=== PATIENT | female | born 1980 ===

== ENCOUNTER 2024-06-15 12:00 | Inpatient (IN) | payer OTHER ==
[~2024-06-15] VITALS: Ht 157.5 cm; Wt 80.7 kg
[2024-06-15] MEDS ORDERED: COZAAR25 MG PO (13:00)
[2024-06-15] MEDS ORDERED: ZETIA10 MG PO (13:00)
[2024-06-15] MEDS ORDERED: TOPROL XL50 M1 PO (13:00)
[2024-06-20] MEDS ORDERED: METRONIDAZOLE/SODIUM CHLORIDE 500 MG/100 ML PIGGYBACK IV ONE ×2 (06:57→08:45)
[2024-06-20] MEDS ORDERED: POVIDONE-IODINE 118 ML BOTT TOP ONE ×2 (06:57→08:45)
[2024-06-20] MEDS ORDERED: SUGAMMADEX SODIUM 200 MG/2 ML VIAL IV ONE ×2 (08:45→08:51)
[2024-06-20] MEDS ORDERED: HEMOSTATIC MATRIX 1 KIT KIT TOP ONE ×2 (08:51→12:00)
[2024-06-20] MEDS ORDERED: RINGERS SOLUTION,LACTATED 1,000 ML IV SCH (09:30)
[2024-06-20] MEDS ORDERED: MEPERIDINE HCL/PF 50 MG/ML VIAL IV PRN (09:30)
[2024-06-20] MEDS ORDERED: ONDANSETRON HCL 2 MG/ML VIAL IV PRN (09:30)
[2024-06-20 13:37] LABS: HEMATOCRIT 33.8 % (36.0-45.00); HEMOGLOBIN 11.4 g/dL (12.0-15.00); MEAN CORPUSCULAR HEMOGLOBIN 28.5 pg (27.00-32.0); MEAN CORPUSCULAR HGB CONC 33.9 g/dl (32.0-36.0); PLATELET COUNT 243 K/uL (150-450); RED BLOOD COUNT 4.02 M/uL (4.00-6.00)
[2024-06-20] MEDS ORDERED: METRONIDAZOLE/SODIUM CHLORIDE 500 MG/100 ML PIGGYBACK IV SCH (17:00)
[2024-06-21] MEDS ORDERED: ACETAMINOPHEN 500 MG GEL..CAP PO PRN (07:15)
[2024-06-21] MEDS ORDERED: ENOXAPARIN SODIUM 40 MG/0.4 ML SYRINGE SUBCUTANEO SCH (09:00)
[2024-06-21] MEDS ORDERED: HYOSCYAMINE SULFATE 0.125 MG TAB.SUBL SL SCH (14:00)
[2024-06-22] MEDS ORDERED: HYOSCYAMINE0.125 M1 SL (07:25)
[2024-06-22] MEDS ORDERED: PAIN RELIEVER500 M2 PO (07:25)
[2024-06-22] MEDS ORDERED: LOSARTAN POTASSIUM 25 MG TABLET PO SCH (09:00)
[2024-06-22] MEDS ORDERED: METOPROLOL SUCCINATE 50 MG TAB.SR.24H PO SCH (09:00)
== END 2024-06-22 12:36 | disposition home or self-care (01) | DRG 743 ==
LOC: O/R 06-20 05:24 → SURH 06-20 07:00 → OB/GYN 06-20 11:24 → SURH 06-20 12:00 → OB/GYN 06-20 22:12
PROVIDERS: ADMIT Obstetrics & Gynecology Gynecology; ATTEND Obstetrics & Gynecology Gynecology
PROC: 0UT90ZZ Resection of Uterus, Open Approach (ICD-10-PCS; principal; 2024-06-20 07:00)
DX: D25.1 Intramural leiomyoma of uterus (principal); D25.0 Submucous leiomyoma of uterus; N80.03 Adenomyosis of the uterus; N72 Inflammatory disease of cervix uteri; N92.1 Excessive and frequent menstruation with irregular cycle; Z20.822 Contact with and (suspected) exposure to COVID-19